=== PATIENT | female | born 1990 | race Hispanic/Latino ===

== ENCOUNTER 2017-02-20 20:30 | Inpatient (IN) | payer MEDICAID, OTHER ==
[2017-02-20] MEDS ORDERED: Sodium Chloride 0.9% 1,000 ML IV STA ×2 (20:41→21:44)
[2017-02-20 20:54] LABS: BASO # 0.1 K/uL (0.0-0.2); BASO % 0.6 % (0.0-2.0); EOS # 0.1 K/uL (0.0-0.7); EOS % 0.9 % (0.0-4.0); HEMATOCRIT 38.3 % (34.0-47.0); LYMPH # 3.6 K/uL (1.0-4.3); LYMPH % 30.1 % (20.0-40.0); MEAN CELL VOLUME 89.6 fl (81.0-99.0); MEAN CORPUSCULAR HEMOGLOBIN 30.4 pg (27.0-31.0); MEAN PLATELET VOLUME 7.9 fl (7.2-11.7); MONO % 8.6 % (0.0-10.0); NEUT # 7.1 K/uL (1.8-7.0); NEUT % 59.8 % (50.0-75.0); RED CELL DISTRIBUTION WIDTH 13.2 % (11.5-14.5); WHITE BLOOD COUNT 11.9 K/uL (4.8-10.8)
[2017-02-20 21:03] LABS: PARTIAL THROMBOPLASTIN TIME 31.1 Seconds (25.6-37.1)
[2017-02-20 21:10] LABS: ALB/GLOB RATIO 1.5 (1.0-2.1); ALCOHOL SERUM 36 mg/dl (0-10); ALKALINE PHOSPHATASE 75 U/L (38-126); ALT/SGPT 23 U/L (9-52); AST/SGOT 29 U/L (14-36); BILIRUBIN,TOTAL 0.9 mg/dl (0.2-1.3); BLOOD UREA NITROGEN 12 mg/dl (7-17); CALCIUM 9.7 mg/dL (8.4-10.2); CARBON DIOXIDE 22 mmol/L (22-30); CHLORIDE 102 mmol/L (98-107); GFR AFRICAN-AMERICAN > 60; GLUCOSE,RANDOM 89 mg/dL (65-105); POTASSIUM 3.3 MMOL/L (3.6-5.0); SODIUM 137 mmol/l (132-148); TOTAL PROTEIN 7.6 G/DL (6.3-8.2)
--- NOTE | 2017-02-20 21:47 | ED PDOC ---
HPI: Psych/Substance Abuse Time Seen by Provider: 02/20/17 20:37 Chief Complaint (Nursing): Altered Mental Status Chief Complaint (Provider): Overdose ED Caveat: Other (Overdose) Onset/Duration Of Symptoms: Hrs Current Symptoms Are (Timing): Still Present Additional Complaint(s): Aleja Juarez is a 27 year old female that was brought in by EMS after she self reported having overdoses on an unspecified amount of a sleeping agent. Upon arrival in ED, patient is somnolent but arousable. Provider attempted to further ascertain history and feels patient verbalizing that she took 6 Ambien. Patient is a poor historian, and there is no other person to provide further history, as patient was reportedly found on the stoop of her building after she called 911. Past Medical History Reviewed: Historical Data, Nursing Documentation, Vital Signs Vital Signs: Last Vital Signs Temp 98.0 F 02/20/17 20:32 Pulse 100 H 02/20/17 20:32 Resp 12 02/20/17 20:32 BP 141/103 H 02/20/17 20:32 Pulse Ox 99 02/20/17 20:32 - Medical History PMH: No Chronic Diseases - Family History Family History: States: Unknown Family Hx - Allergies Allergies/Adverse Reactions: Allergies Allergy/AdvReac Type Severity Reaction Status Date / Time Unobtainable Allergy Verified 02/20/17 20:32 Review of Systems Review Of Systems: ROS cannot be obtained secondary to pt's inabilty to answer questions. Physical Exam - Reviewed Nursing Documentation Reviewed: Yes Vital Signs Reviewed: Yes - Physical Exam Appears: Positive for: Non-toxic, No Acute Distress Head Exam: Positive for: ATRAUMATIC, NORMOCEPHALIC Skin: Positive for: Normal Color, Warm Cardiovascular/Chest: Positive for: Regular Rate, Rhythm. Negative for: Murmur Respiratory: Positive for: Normal Breath Sounds. Negative for: Wheezing Neurologic/Psych: Positive for: Oriented, Other (Patient has slurred speech). Negative for: Alert (Patient is somnolent) - Laboratory Results Result Diagrams: 02/20/17 20:46 02/20/17 20:46 - ECG O2 Sat by Pulse Oximetry: 99 (RA) Pulse Ox Interpretation: Normal - Critical Care Total Time (In Min): 30 Medical Decision Making Medical Decision Making: Impression: 27 year old female s/p overdose Plan: * EKG * Urine Drug Screen * Urinalysis * Accucheck * NaCl 1000 mLs at 1000 mLs/hr * 1:1 Observation * Poison Control Consult * Reevaluation Labs reviewed, showed clinically significant abnormalities. Patient placed in ICU for further monitoring and treatments. Case discussed with Dr. Cornejo and Dr. Tse. 22:09 Further history was obtained, discovered that patient is supposed to be taking [place]. Patient denies and states that she has not taken any lithium. [place] level was added to labs. Poison control has no further recommendations. Scribe Attestation: Documented by Deja Jones, acting as a scribe for Evangelist Centeno MD. Provider Scribe Attestation: All medical record entries made by the Scribe were at my direction and personally dictated by me. I have reviewed the chart and agree that the record accurately reflects my personal performance of the history, physical exam, medical decision making, and the department course for this patient. I have also personally directed, reviewed, and agree with the discharge instructions and disposition. Disposition - Clinical Impression Clinical Impression: Overdose - Patient ED Disposition Is Patient to be Admitted: Yes - Disposition Disposition Time: 21:13 Condition: FAIR
--- NOTE | 2017-02-20 21:53 | CP.PCM.CON ---
History of Present Illness - History of Present Illness History of Present Illness: Attending: Jeff Tse MD Reason for Consult; Critical care management Chief Complaint: AMS/ Drug ingestion HPI: The hx is obtained from the Medical records as the patient is very Somnolent. She is a 27 years old female who apparently called 911 after ingesting and overdosing on an unspecified amount of sleeping Pills. She was found on the stoop of her building and on arrival in the ED she was Very Somnolent, arusable but with thick slurred speech and falling back to sleep immediately. No Information was obtainable. PMH: Unobtainable PSH: Unobtainable SH: Alcohol use, otherwise Unobtainable FH: Unobtainable Allergies: Unobtainable Medication: Unobtainable Review of Systems - Review of Systems Systems not reviewed;Unavailable: Altered Mental Status Review of Systems: Review of system Unobtainable because of the Patient's Somnolence Past Patient History - CARDIAC Hx Cardiac Disorders: Yes (Unobtainable) - PULMONARY Hx Respiratory Disorders: Yes (Unobtainable) Other/Comment: UNobtainable - NEUROLOGICAL Hx Neurological Disorder: Yes (Unobtainable) Other/Comment: Unobtainable - HEENT Hx HEENT Problems: Yes (Unobtainable) Other/Comment: Unobtainable - RENAL Hx Chronic Kidney Disease: Yes (Unobtainable) Other/Comment: Unobtainable - ENDOCRINE/METABOLIC Hx Endocrine Disorders: Yes (Unobtainable) Other/Comment: Unobtainable - HEMATOLOGICAL/ONCOLOGICAL Hx Blood Disorders: Yes (Unobtainable) - INTEGUMENTARY Hx Dermatological Problems: Yes (Unobtainable) - MUSCULOSKELETAL/RHEUMATOLOGICAL Hx Musculoskeletal Disorders: Yes (Unobtainable) - GASTROINTESTINAL Hx Gastrointestinal Disorders: Yes (Unobtainable) - GENITOURINARY/GYNECOLOGICAL Hx Genitourinary Disorders: Yes (Unobtainable) - PSYCHIATRIC Hx Psychophysiologic Disorder: Yes (Unobtainable) - SURGICAL HISTORY Hx Surgeries: Yes (Unobtainable) - ANESTHESIA Hx Anesthesia: Yes (Unobtainable) Meds Allergies/Adverse Reactions: Allergies Allergy/AdvReac Type Severity Reaction Status Date / Time Unobtainable Allergy Verified 02/20/17 20:32 - Medications Medications: Current Medications Sodium Chloride (Sodium Chloride 0.9%) 1,000 mls @ 1,000 mls/hr IV .Q1H STA Stop: 02/20/17 22:43 Ondansetron HCl (Zofran Inj) 4 mg IV STAT STA Stop: 02/20/17 21:45 Physical Exam - Constitutional Appears: No Acute Distress - Head Exam Head Exam: ATRAUMATIC, NORMAL INSPECTION, NORMOCEPHALIC - Eye Exam Eye Exam: Normal appearance Pupil Exam: NORMAL ACCOMODATION - ENT Exam ENT Exam: Mucous Membranes Moist, Normal Exam, Normal External Ear Exam - Neck Exam Neck exam: Positive for: Full Rom, Normal Inspection. Negative for: Lymphadenopathy, Tenderness - Respiratory Exam Respiratory Exam: Clear to Auscultation Bilateral. absent: Rales, Rhonchi, Wheezes - Cardiovascular Exam Cardiovascular Exam: REGULAR RHYTHM, RRR, +S1, +S2. absent: Gallop, JVD - GI/Abdominal Exam GI & Abdominal Exam: Normal Bowel Sounds, Soft. absent: Mass, Tenderness - Rectal Exam Rectal Exam: Deferred - Extremities Exam Extremities exam: Positive for: normal inspection. Negative for: full ROM, joint swelling, pedal edema - Neurological Exam Neurological exam: CN II-XII Intact, Reflexes Normal Additional comments: Somnolent, arousable, Clear speech if fully aroused,no facial droop, moving all extremities. - Psychiatric Exam Psychiatric exam: Suicidal Ideation - Skin Skin Exam: Dry, Intact, Normal Color, Warm Results - Vital Signs Recent Vital Signs: Last Vital Signs Temp 98.0 F 02/20/17 20:32 Pulse 100 H 02/20/17 20:32 Resp 12 02/20/17 20:32 BP 141/103 H 02/20/17 20:32 Pulse Ox 99 02/20/17 21:52 - Labs Result Diagrams: 02/21/17 04:35 02/21/17 04:35 - EKG Data EKG comments: NSR 83/min No sign of ischemia Assessment & Plan - Assessment and Plan (Free Text) Assessment: #. Drug Overdose #. AMS #. Hyperkalemia Plan: 27 years old female who apparently called 911 after ingesting and overdosing on an unspecified amount of sleeping Pills. She was found on the stoop of her building and on arrival in the ED was Very Somnolent, arousable but with thick slurred speech and falling back to sleep immediately. No Information was obtainable. #. Drug Overdose on Ambien with Suicide Attempt - consult Dr Jimenez Psychiatry - Admit to ICU - IV Fluids NS at 150mls/hr - Neuro Checks - 1:1 for Suicide observation #. AMS seconday to the Drug Overdose - Treat Drug Overdose #. Hyperkalemia - Replete KCL in the IV fluids #. DVT prophylaxis with Lovenox #. Code Status: Full - Date & Time Date: 02/20/17 Time: 21:53
[2017-02-20 22:45] LABS: RBC URINE 1 /hpf (0-3); URINE BILIRUBIN NEGATIVE (NEGATIVE); URINE BLOOD SMALL (NEGATIVE); URINE COLOR STRAW (YELLOW); URINE GLUCOSE (UA) NEG (Normal); URINE KETONE NEGATIVE (NEGATIVE); URINE LEUKOCYTE ESTERASE NEG Leu/uL (Negative); URINE PROTEIN NEGATIVE (NEGATIVE); URINE UROBILINOGEN 0.2-1.0 mg/dL (0.2-1.0); WBC URINE < 1 /hpf (0-5)
[2017-02-20] MEDS ORDERED: Thiamine 100 mg/ml Inj IM SCH (22:45)
[2017-02-20] MEDS ORDERED: Potassium Chl 20 mEq in D5-NS 1,000 ML IV SCH (22:45)
[2017-02-21 05:23] LABS: BASO # 0.1 K/uL (0.0-0.2); BASO % 0.4 % (0.0-2.0); EOS # 0.1 K/uL (0.0-0.7); EOS % 0.4 % (0.0-4.0); HEMATOCRIT 35.8 % (34.0-47.0); LYMPH # 3.8 K/uL (1.0-4.3); LYMPH % 26.9 % (20.0-40.0); MEAN CELL VOLUME 90.7 fl (81.0-99.0); MEAN CORPUSCULAR HEMOGLOBIN 29.9 pg (27.0-31.0); MEAN CORPUSCULAR HGB CONC 32.9 g/dL (33.0-37.0); MEAN PLATELET VOLUME 8.1 fl (7.2-11.7); MONO # 1.1 K/uL (0.0-0.8); MONO % 7.9 % (0.0-10.0); NEUT # 9.1 K/uL (1.8-7.0); NEUT % 64.4 % (50.0-75.0); RED CELL DISTRIBUTION WIDTH 13.2 % (11.5-14.5); WHITE BLOOD COUNT 14.2 K/uL (4.8-10.8)
[2017-02-21 05:27] LABS: BLOOD UREA NITROGEN 9 mg/dl (7-17); CALCIUM 8.2 mg/dL (8.4-10.2); CARBON DIOXIDE 23 mmol/L (22-30); CHLORIDE 107 mmol/L (98-107); GFR AFRICAN-AMERICAN > 60; GLUCOSE,RANDOM 104 mg/dL (65-105); POTASSIUM 4.3 MMOL/L (3.6-5.0); SODIUM 139 mmol/l (132-148)
[2017-02-21] MEDS: Sodium Chloride 0.9% 1,000 ML IV SCH (06:20)
--- NOTE | 2017-02-21 07:38 | CP.PCM.HP ---
History of Present Illness - History of Present Illness History of Present Illness: A 27 year old female was admitted to the ICU for ingestion of sleeping pills. She has a history of chronic depression and has been taking prozac, lithium, levetiracetum since 2013. She has been seeing a psychiatrist, Dr. Malone as a regular base. She took yesterday 27 pills of 10 mg of Ambien (zolpidem) around 7 PM with water and alcohol ([place]). She changed her mind and called 911. She did not vomit, but is feeling sleepy. She had not attempted to commit suicide before. Alcohol level was high, 36 at ER. Present on Admission - Present on Admission Any Indicators Present on Admission: No History of DVT/PE: No History of Uncontrolled Diabetes: No Urinary Catheter: No Decubitus Ulcer Present: No Review of Systems - EENT Eyes: absent: Blurred Vision Nose/Mouth/Throat: absent: Nasal Congestion - Cardiovascular Cardiovascular: absent: Chest Pain - Respiratory Respiratory: absent: Cough - Gastrointestinal Gastrointestinal: absent: Abdominal Pain Past Patient History - Past Medical History & Family History Past Medical History?: No - Past Social History Smoking Status: Never Smoked - CARDIAC Hx Cardiac Disorders: Yes (Unobtainable) - PULMONARY Hx Respiratory Disorders: Yes (Unobtainable) Other/Comment: UNobtainable - NEUROLOGICAL Hx Neurological Disorder: Yes (Unobtainable) Other/Comment: Unobtainable - HEENT Hx HEENT Problems: Yes (Unobtainable) Other/Comment: Unobtainable - RENAL Hx Chronic Kidney Disease: Yes (Unobtainable) Other/Comment: Unobtainable - ENDOCRINE/METABOLIC Hx Endocrine Disorders: Yes (Unobtainable) Other/Comment: Unobtainable - HEMATOLOGICAL/ONCOLOGICAL Hx Blood Disorders: Yes (Unobtainable) - INTEGUMENTARY Hx Dermatological Problems: Yes (Unobtainable) - MUSCULOSKELETAL/RHEUMATOLOGICAL Hx Musculoskeletal Disorders: Yes (Unobtainable) - GASTROINTESTINAL Hx Gastrointestinal Disorders: Yes (Unobtainable) - GENITOURINARY/GYNECOLOGICAL Hx Genitourinary Disorders: Yes (Unobtainable) - PSYCHIATRIC Hx Psychophysiologic Disorder: Yes (Unobtainable) - SURGICAL HISTORY Hx Surgeries: Yes (Unobtainable) - ANESTHESIA Hx Anesthesia: Yes (Unobtainable) Meds Allergies/Adverse Reactions: Allergies Allergy/AdvReac Type Severity Reaction Status Date / Time Unobtainable Allergy Verified 02/20/17 20:32 Physical Exam - Constitutional Appears: No Acute Distress - Respiratory Exam Respiratory Exam: Clear to Auscultation Bilateral, NORMAL BREATHING PATTERN - Cardiovascular Exam Cardiovascular Exam: REGULAR RHYTHM. absent: Systolic Murmur - GI/Abdominal Exam GI & Abdominal Exam: Normal Bowel Sounds, Soft Results - Vital Signs Recent Vital Signs: Last Vital Signs Temp 98.8 F 02/21/17 04:00 Pulse 65 02/21/17 06:00 Resp 14 02/21/17 06:00 BP 105/63 02/21/17 06:00 Pulse Ox 99 02/21/17 06:00 - Labs Result Diagrams: 02/21/17 04:35 02/21/17 04:35 Labs: Laboratory Results - last 24 hr 02/20/17 02/20/17 02/20/17 22:39 22:39 22:39 WBC RBC Hgb Hct MCV MCH MCHC RDW Plt Count MPV Neut % (Auto) Lymph % (Auto) [place] % (Auto) Eos % (Auto) Baso % (Auto) Neut # Lymph # [place] # Eos # Baso # Sodium Potassium Chloride Carbon Dioxide Anion Gap BUN Creatinine Est GFR ( Amer) Est GFR (Non-Af Amer) Random Glucose Calcium Urine Color Straw Urine Clarity Clear Urine pH 6.0 Ur Specific [place] 1.010 Urine Protein Negative Urine Glucose (UA) Neg Urine Ketones Negative Urine Blood Small Urine Nitrate Negative Urine Bilirubin Negative Urine Urobilinogen 0.2-1.0 Ur Leukocyte Esterase Neg Urine RBC (Auto) 1 Urine Microscopic WBC < 1 Ur Squamous Epith Cells < 1 Urine Opiates Screen Negative Urine Methadone Screen Negative Ur Barbiturates Screen Negative Ur Phencyclidine Scrn Negative Ur Amphetamines Screen Negative U Benzodiazepines Scrn Negative [place] < 0.2 L U Oth Cocaine Metabols Negative U Cannabinoids Screen Negative 02/21/17 02/21/17 04:35 04:35 WBC 14.2 H RBC 3.95 Hgb 11.8 L Hct 35.8 MCV 90.7 MCH 29.9 MCHC 32.9 L RDW 13.2 Plt Count 215 MPV 8.1 Neut % (Auto) 64.4 Lymph % (Auto) 26.9 [place] % (Auto) 7.9 Eos % (Auto) 0.4 Baso % (Auto) 0.4 Neut # 9.1 H Lymph # 3.8 [place] # 1.1 H Eos # 0.1 Baso # 0.1 Sodium 139 Potassium 4.3 Chloride 107 Carbon Dioxide 23 Anion Gap 13 BUN 9 Creatinine 0.7 Est GFR ( Amer) > 60 Est GFR (Non-Af Amer) > 60 Random Glucose 104 Calcium 8.2 L Urine Color Urine Clarity Urine pH Ur Specific [place] Urine Protein Urine Glucose (UA) Urine Ketones Urine Blood Urine Nitrate Urine Bilirubin Urine Urobilinogen Ur Leukocyte Esterase Urine RBC (Auto) Urine Microscopic WBC Ur Squamous Epith Cells Urine Opiates Screen Urine Methadone Screen Ur Barbiturates Screen Ur Phencyclidine Scrn Ur Amphetamines Screen U Benzodiazepines Scrn [place] U Oth Cocaine Metabols U Cannabinoids Screen Assessment & Plan - Assessment and Plan (Free Text) Assessment: drug ingestion (Ambien) depression Plan: observation follow toxicology recommendation psychiatry consult - Date & Time Date: 02/21/17 Time: 07:40
[2017-02-21] MEDS: Enoxaparin 40 mg Syringe SC SCH (08:51)
--- NOTE | 2017-02-21 09:08 | CARD ---
APPROVED REPORT EKG Measurement Heart [id number] CT [id number] <Conclusion> Normal sinus rhythm Normal ECG
--- NOTE | 2017-02-21 10:36 | CP.PCM.CON ---
History of Present Illness - History of Present Illness History of Present Illness: Psychiatry consult called for evaluation of suicide attempt CC: "I suffer from chronic depression." HPI: 27 yo female w/ h/o chronic depression, presents s/p overdose on 27 pills of 10 mg of Ambien w/ cognac.. Patient reports that it was a suicide attempt. She has been feeling worsening depression, hopelessness, and feels like a burden to her family. She now regrets her attempt and wants to live. She denies current suicidal ideation/plan/intent. She is not certain if she wants to sign in for voluntary psychiatric admission at this time. No delusions/ hallucinations/homicidal ideation/paranoia. PPHx: H/o outpatient tx w/ Dr. Malone; currently taking Prozac (10 mg?), Lamictal 200 mg PO Daily, and [place] 100 mg PO Q12. Denies h/o suicide attempts. PMHx: Denies chronic medical conditions SHx: Lives alone in [place], financially supported by her family. Denies drugs , drinks socially, no cig. FHx: Mother, grandmother and aunts w/ varying degrees of depression MSE: A + O x 3, calm/cooperative, mood-depressed, affect- depressed, speech normal, speech normal, psychomotor normal, no hallucinations, thought process- linear, thought content- no delusions, insight/judgment-fair, impulse control fair Impression: 27 yo female w/ h/o depression, presents s/p suicide attempt. Patient need acute inpatient psychiatric hospitalization for treatment and safety. -Recommend psychiatric admission when she is medically stable; if she is not agreeable to voluntary admission, would have her screened for involuntary admission -Restart Lamictal 200 mg PO Daily -Hold other medications at this time; will consider restarting Prozac and [place] (Li level <0.2) -Continue 1:1 for safety. Past Patient History - Past Medical History & Family History Past Medical History?: No - Past Social History Smoking Status: Never Smoked - CARDIAC Hx Cardiac Disorders: Yes (Unobtainable) - PULMONARY Hx Respiratory Disorders: Yes (Unobtainable) Other/Comment: UNobtainable - NEUROLOGICAL Hx Neurological Disorder: Yes (Unobtainable) Other/Comment: Unobtainable - HEENT Hx HEENT Problems: Yes (Unobtainable) Other/Comment: Unobtainable - RENAL Hx Chronic Kidney Disease: Yes (Unobtainable) Other/Comment: Unobtainable - ENDOCRINE/METABOLIC Hx Endocrine Disorders: Yes (Unobtainable) Other/Comment: Unobtainable - HEMATOLOGICAL/ONCOLOGICAL Hx Blood Disorders: Yes (Unobtainable) - INTEGUMENTARY Hx Dermatological Problems: Yes (Unobtainable) - MUSCULOSKELETAL/RHEUMATOLOGICAL Hx Musculoskeletal Disorders: Yes (Unobtainable) - GASTROINTESTINAL Hx Gastrointestinal Disorders: Yes (Unobtainable) - GENITOURINARY/GYNECOLOGICAL Hx Genitourinary Disorders: Yes (Unobtainable) - PSYCHIATRIC Hx Psychophysiologic Disorder: Yes (Unobtainable) - SURGICAL HISTORY Hx Surgeries: Yes (Unobtainable) - ANESTHESIA Hx Anesthesia: Yes (Unobtainable) Meds Allergies/Adverse Reactions: Allergies Allergy/AdvReac Type Severity Reaction Status Date / Time Unobtainable Allergy Verified 02/20/17 20:32 - Medications Medications: Current Medications Enoxaparin Sodium (Lovenox) 40 mg SC DAILY [facility] PRN Reason: Protocol Last Admin: 02/21/17 08:51 Dose: 40 mg Potassium Chloride/Dextrose/Sod Cl (Potassium Chl 20 Meq In D5-Ns) 1,000 mls @ 148.515 mls/hr IV .Q6H44M [facility] Last Admin: 02/21/17 00:25 Dose: 148.515 mls/hr Sodium Chloride (Sodium Chloride 0.9%) 1,000 mls @ 150 mls/hr IV .Q6H40M [facility] Stop: 02/22/17 06:10 Last Admin: 02/21/17 06:20 Dose: 150 mls/hr Lamotrigine (Lamictal) 200 mg PO DAILY [facility] Ondansetron HCl (Zofran Inj) 4 mg IVP Q4 PRN PRN Reason: Nausea/Vomiting Results - Vital Signs Recent Vital Signs: Last Vital Signs Temp 97.4 F L 02/21/17 08:00 Pulse 61 02/21/17 08:00 Resp 15 02/21/17 08:00 BP 113/62 02/21/17 08:00 Pulse Ox 98 02/21/17 08:00 - Labs Result Diagrams: 02/21/17 04:35 02/21/17 04:35 Labs: Laboratory Results - last 24 hr 02/20/17 02/20/17 02/20/17 22:39 22:39 22:39 WBC RBC Hgb Hct MCV MCH MCHC RDW Plt Count MPV Neut % (Auto) Lymph % (Auto) [place] % (Auto) Eos % (Auto) Baso % (Auto) Neut # Lymph # [place] # Eos # Baso # Sodium Potassium Chloride Carbon Dioxide Anion Gap BUN Creatinine Est GFR ( Amer) Est GFR (Non-Af Amer) Random Glucose Calcium Urine Color Straw Urine Clarity Clear Urine pH 6.0 Ur Specific [place] 1.010 Urine Protein Negative Urine Glucose (UA) Neg Urine Ketones Negative Urine Blood Small Urine Nitrate Negative Urine Bilirubin Negative Urine Urobilinogen 0.2-1.0 Ur Leukocyte Esterase Neg Urine RBC (Auto) 1 Urine Microscopic WBC < 1 Ur Squamous Epith Cells < 1 Urine Opiates Screen Negative Urine Methadone Screen Negative Ur Barbiturates Screen Negative Ur Phencyclidine Scrn Negative Ur Amphetamines Screen Negative U Benzodiazepines Scrn Negative [place] < 0.2 L U Oth Cocaine Metabols Negative U Cannabinoids Screen Negative 02/21/17 02/21/17 04:35 04:35 WBC 14.2 H RBC 3.95 Hgb 11.8 L Hct 35.8 MCV 90.7 MCH 29.9 MCHC 32.9 L RDW 13.2 Plt Count 215 MPV 8.1 Neut % (Auto) 64.4 Lymph % (Auto) 26.9 [place] % (Auto) 7.9 Eos % (Auto) 0.4 Baso % (Auto) 0.4 Neut # 9.1 H Lymph # 3.8 [place] # 1.1 H Eos # 0.1 Baso # 0.1 Sodium 139 Potassium 4.3 Chloride 107 Carbon Dioxide 23 Anion Gap 13 BUN 9 Creatinine 0.7 Est GFR ( Amer) > 60 Est GFR (Non-Af Amer) > 60 Random Glucose 104 Calcium 8.2 L Urine Color Urine Clarity Urine pH Ur Specific [place] Urine Protein Urine Glucose (UA) Urine Ketones Urine Blood Urine Nitrate Urine Bilirubin Urine Urobilinogen Ur Leukocyte Esterase Urine RBC (Auto) Urine Microscopic WBC Ur Squamous Epith Cells Urine Opiates Screen Urine Methadone Screen Ur Barbiturates Screen Ur Phencyclidine Scrn Ur Amphetamines Screen U Benzodiazepines Scrn [place] U Oth Cocaine Metabols U Cannabinoids Screen
--- NOTE | 2017-02-21 14:07 | CP.PCM.PCO ---
Critical Care Progress Note - Nutrition Nutrition: Awake and alert, no distress. Appears emotional with parents at the bedside. Hemodynamics stable, no arrhythmias noted, respiratory status has been stable without issues nor any need for assisted breathing support. Discussed with Psych , cleared for transfer to regular medical bed, under 1:1 supervision. Lamictal resumed for now. Consider [place] level assessment.
[2017-02-22] MEDS: Sodium Chloride 0.9% 1,000 ML IV SCH ×3 (01:10→20:36)
--- NOTE | 2017-02-22 08:43 | CP.PCM.PN ---
Subjective - Date & Time of Evaluation Date of Evaluation: 02/22/17 Time of Evaluation: 08:41 - Subjective Subjective: feels fine now no headache no nausea Objective - Vital Signs/Intake and Output Vital Signs (last 24 hours): Temp Pulse Resp BP Pulse Ox 98.4 F 65 18 116/76 96 02/22/17 08:04 02/22/17 08:04 02/22/17 08:04 02/22/17 08:04 02/22/17 08:04 - Medications Medications: Current Medications Enoxaparin Sodium (Lovenox) 40 mg SC DAILY [facility] PRN Reason: Protocol Last Admin: 02/21/17 08:51 Dose: 40 mg Lamotrigine (Lamictal) 200 mg PO DAILY [facility] Last Admin: 02/21/17 11:36 Dose: 200 mg Ondansetron HCl (Zofran Inj) 4 mg IVP Q4 PRN PRN Reason: Nausea/Vomiting - Labs Labs: 02/21/17 04:35 02/21/17 04:35 PT 11.9 Seconds (9.8-13.1) 02/20/17 20:46 INR 1.2 (0.9-1.2) 02/20/17 20:46 APTT 31.1 Seconds (25.6-37.1) 02/20/17 20:46 - Constitutional Appears: No Acute Distress - Respiratory Exam Respiratory Exam: Clear to Ausculation Bilateral, NORMAL BREATHING PATTERN - Cardiovascular Exam Cardiovascular Exam: REGULAR RHYTHM. absent: Murmur - GI/Abdominal Exam GI & Abdominal Exam: Soft Assessment and Plan - Assessment and Plan (Free Text) Assessment: s/p drug ingestion of Ambien, attempted suicide now on 1:1 watch psychiatry on board history of chronic depression yesterday Lamictal started. Plan: Patient is saying that she will do voluntary admission. She is medically clear for psych admission. follow up. taper iv fluid.
[2017-02-22] MEDS: Enoxaparin 40 mg Syringe SC SCH (10:08)
[2017-02-22] MEDS ORDERED: Naproxen 500 MG TAB PO PRN (19:30)
[2017-02-23] MEDS: Sodium Chloride 0.9% 1,000 ML IV SCH (06:00)
[2017-02-23] MEDS: Enoxaparin 40 mg Syringe SC SCH (09:08)
--- NOTE | 2017-02-23 12:23 | CP.PCM.PN ---
Subjective - Date & Time of Evaluation Date of Evaluation: 02/23/17 Time of Evaluation: 12:20 - Subjective Subjective: no nausea no headaches yesterday she had menstrual cramps, now she is fine. her parents are at the bed side. Objective - Vital Signs/Intake and Output Vital Signs (last 24 hours): Temp Pulse Resp BP Pulse Ox 97.6 F 64 18 113/72 98 02/23/17 00:16 02/23/17 00:16 02/23/17 00:16 02/23/17 00:16 02/23/17 00:16 - Medications Medications: Current Medications Enoxaparin Sodium (Lovenox) 40 mg SC DAILY [facility] PRN Reason: Protocol Last Admin: 02/23/17 09:08 Dose: 40 mg Sodium Chloride (Sodium Chloride 0.9%) 1,000 mls @ 100 mls/hr IV .Q10H [facility] Last Admin: 02/23/17 06:00 Dose: Not Given Lamotrigine (Lamictal) 200 mg PO DAILY [facility] Last Admin: 02/23/17 09:07 Dose: 200 mg Naproxen (Naproxen) 500 mg PO Q12 PRN PRN Reason: Pain, moderate (4-7) Last Admin: 02/22/17 20:35 Dose: 500 mg Ondansetron HCl (Zofran Inj) 4 mg IVP Q4 PRN PRN Reason: Nausea/Vomiting - Labs Labs: 02/21/17 04:35 02/21/17 04:35 PT 11.9 Seconds (9.8-13.1) 02/20/17 20:46 INR 1.2 (0.9-1.2) 02/20/17 20:46 APTT 31.1 Seconds (25.6-37.1) 02/20/17 20:46 - Constitutional Appears: No Acute Distress - Respiratory Exam Respiratory Exam: Clear to Ausculation Bilateral, NORMAL BREATHING PATTERN - Cardiovascular Exam Cardiovascular Exam: REGULAR RHYTHM. absent: Murmur - GI/Abdominal Exam GI & Abdominal Exam: Soft. absent: Tenderness Assessment and Plan - Assessment and Plan (Free Text) Assessment: s/p drug ingestion of sleeping pills suicidal attempt now on 1:1 watch chronic depression Plan: transfer to an in patient psych unit patient wants voluntary admission She is medically clear for drug ingestion of Ambien.
[2017-02-23 15:34] VITALS: O2SAT 99
--- NOTE | 2017-02-23 20:45 | CP.PCM.CON ---
History of Present Illness - History of Present Illness History of Present Illness: pt to [facility] 6[facility] via [facility] after presentation status post impulsive (reported) overdose of 27 ambien in impulsive act after reportedly feeling ashamed of "not managing money well". 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 reports lives along, has grown astray from many friends, maintains some relationships with some friends from [facility] [employer] from which she reportedly graduated more than one year ago. Reports that generally spends money on fast foods or prepared foods. denies impulsive behavior. although denies hx of eating disorders reports that has put on some weight and not attending gym as much as she would like. reports hx of social anxiety described as feeling in past nervous around people she did not know or starting conversations with people she is not familiar with with. reportedly compensated with this by assuming what her brother reportedly said he did " i imagined myself as being liked, someone people would want to be around"-which reportedly worked. 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 reports has been seeing dr sewell on wednesdays ([place] office hours) along with therapist. pt was taking lamictal 100mg po bid and approx. 10days prior to admission was started on lithium 100mg po bid-reportedly symptoms began to worsen in terms of depression with this change. previously was taking rispderal 1mg po hs which reportedly worked for a while with concentration/volition-then after stopped working . 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 hx Alcohol: Other (two glasses wine day) Drugs: Cannabis Home Situation {Lives}: Alone, Other ([place] live in [place]) - CARDIAC Hx Cardiac Disorders: No (Unobtainable) Hx Angina: No Hx Atrial Fibrillation: No - PULMONARY Hx Respiratory Disorders: Yes (Unobtainable) Other/Comment: UNobtainable - NEUROLOGICAL Hx Neurological Disorder: Yes (Unobtainable) Other/Comment: Unobtainable - HEENT Hx HEENT Problems: Yes (Unobtainable) Other/Comment: Unobtainable - RENAL Hx Chronic Kidney Disease: Yes (Unobtainable) Other/Comment: Unobtainable - ENDOCRINE/METABOLIC Hx Endocrine Disorders: Yes (Unobtainable) Other/Comment: Unobtainable - HEMATOLOGICAL/ONCOLOGICAL Hx Blood Disorders: Yes (Unobtainable) - INTEGUMENTARY Hx Dermatological Problems: Yes (Unobtainable) - MUSCULOSKELETAL/RHEUMATOLOGICAL Hx Musculoskeletal Disorders: Yes (Unobtainable) - GASTROINTESTINAL Hx Gastrointestinal Disorders: Yes (Unobtainable) - GENITOURINARY/GYNECOLOGICAL Hx Genitourinary Disorders: Yes (Unobtainable) - PSYCHIATRIC Hx Psychophysiologic Disorder: Yes (Unobtainable) - SURGICAL HISTORY Hx Surgeries: Yes (Unobtainable) - ANESTHESIA Hx Anesthesia: Yes (Unobtainable) Meds Allergies/Adverse Reactions: Allergies Allergy/AdvReac Type Severity Reaction Status Date / Time Unobtainable Allergy Verified 02/20/17 20:32 - Medications Medications: Current Medications Enoxaparin Sodium (Lovenox) 40 mg SC DAILY [facility] PRN Reason: Protocol Last Admin: 02/23/17 09:08 Dose: 40 mg Sodium Chloride (Sodium Chloride 0.9%) 1,000 mls @ 100 mls/hr IV .Q10H [facility] Last Admin: 02/23/17 06:00 Dose: Not Given Lamotrigine (Lamictal) 200 mg PO DAILY [facility] Last Admin: 02/23/17 09:07 Dose: 200 mg Naproxen (Naproxen) 500 mg PO Q12 PRN PRN Reason: Pain, moderate (4-7) Last Admin: 02/22/17 20:35 Dose: 500 mg Ondansetron HCl (Zofran Inj) 4 mg IVP Q4 PRN PRN Reason: Nausea/Vomiting Physical Exam - Constitutional Appears: No Acute Distress, Younger Than Stated Age Additional comments: hospital gown, hospital room - Neurological Exam Neurological exam: Alert, Normal Gait, Oriented x3 - Psychiatric Exam Additional comments: somewhat constricted affect, speech of varied rate, thought process is linear/ goal directed, mood is reported as remorseful about act, denies wanting to harmself-is reportedly glad to be alive, affect is mood congruent, -s/i,-h/i,- psychosis, i/j impaired Results - Vital Signs Recent Vital Signs: Last Vital Signs Temp 98.1 F 02/23/17 15:33 Pulse 69 02/23/17 15:33 Resp 17 02/23/17 15:33 BP 129/77 02/23/17 15:33 Pulse Ox 99 02/23/17 15:33 - Labs Result Diagrams: 02/21/17 04:35 02/21/17 04:35 - Impressions Impression: major depressive disorder moderate to severe without psychosis ?bipolar disorder ?mood stabilizer lamictal and lithium s/p overdose ambien reported as impulsive act Assessment & Plan (1) Major depress dis, severe Status: Chronic Priority: High (2) Bipolar 1 disorder, depressed Status: Acute Priority: High Comment: rule out ?two mood stabilizers (3) Suicidal overdose Status: Acute Priority: High - Assessment and Plan (Free Text) Plan: once medically cleared pt to be voluntarily transferred to [facility]-pt has signed release and release/agreement was forwarded to nursing staff on 6s 48 hour notice was explained to pt pt was verbally agreeable and positive teachback was noted. team in am of [phone] should reach out to obtain records dr sewell/therapist-pt was verbally agreeable pt to further evaluated on 3 and medications to titrated per clinical status
[2017-02-23 22:12] VITALS: BP 115/70; PULSE 58; RESP 19; TEMP 98
--- NOTE | 2017-02-24 00:30 | CP.PCM.HP ---
History of Present Illness - History of Present Illness History of Present Illness: 27 yo ,f, PMHx/o Major depression who was brought in to ED by EMS after suicidal attempt with Ambien overdose (27 pills) 3 days ago.Patient was admitted in ICU, medsurg and transferred to psyq [facility]. Patient reports has been with suicidal ideation for about 1 year and took medications to finish with his problems, but does not want to mention what kind of problems. Patient AAO x 3, denies chest pain, SOB, tremor, nausea, anxiety, abd pain, visual or auditory hallucinations. She has been seeing a psychiatrist, Dr. Malone as a regular base.last visit 2 weeks ago PMhx: Major depression Allergies: Cefaclor, Penicillins Meds: lamotrigine ,Prozac, [place] 100mg BID ( as per patient ) PsurgHx: None PShx: +ETOH occs social, no rect drus, no cig PMD: Dr Carmencita Aguilar Present on Admission - Present on Admission Any Indicators Present on Admission: No History of DVT/PE: No History of Uncontrolled Diabetes: No Urinary Catheter: No Decubitus Ulcer Present: No Past Patient History - Infectious Disease Hx of Infectious Diseases: None - Past Medical History & Family History Past Medical History?: No - Past Social History Smoking Status: Never Smoked Chewing Tobacco Use: No Cigar Use: No 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 hx Alcohol: Other (two glasses wine day) Drugs: Cannabis Home Situation {Lives}: Alone, Other ([place] in [place]) - CARDIAC Hx Cardiac Disorders: No (Unobtainable) Hx Angina: No Hx Atrial Fibrillation: No - PULMONARY Hx Respiratory Disorders: Yes (Unobtainable) Other/Comment: UNobtainable - NEUROLOGICAL Hx Neurological Disorder: Yes (Unobtainable) Other/Comment: Unobtainable - HEENT Hx HEENT Problems: Yes (Unobtainable) Other/Comment: Unobtainable - RENAL Hx Chronic Kidney Disease: Yes (Unobtainable) Other/Comment: Unobtainable - ENDOCRINE/METABOLIC Hx Endocrine Disorders: Yes (Unobtainable) Other/Comment: Unobtainable - HEMATOLOGICAL/ONCOLOGICAL Hx Blood Disorders: Yes (Unobtainable) - INTEGUMENTARY Hx Dermatological Problems: Yes (Unobtainable) - MUSCULOSKELETAL/RHEUMATOLOGICAL Hx Musculoskeletal Disorders: Yes (Unobtainable) - GASTROINTESTINAL Hx Gastrointestinal Disorders: Yes (Unobtainable) - GENITOURINARY/GYNECOLOGICAL Hx Genitourinary Disorders: Yes (Unobtainable) - PSYCHIATRIC Hx Psychophysiologic Disorder: Yes (Unobtainable) - SURGICAL HISTORY Hx Surgeries: Yes (Unobtainable) - ANESTHESIA Hx Anesthesia: Yes (Unobtainable) Meds Allergies/Adverse Reactions: Allergies Allergy/AdvReac Type Severity Reaction Status Date / Time cefaclor [From Ceclor] Allergy ITCHING Verified 02/23/17 23:19 Penicillins Allergy ITCHING Verified 02/23/17 23:19 Physical Exam - Constitutional Appears: Non-toxic - Head Exam Head Exam: ATRAUMATIC, NORMOCEPHALIC - Eye Exam Eye Exam: Normal appearance - ENT Exam ENT Exam: Mucous Membranes Moist - Neck Exam Neck exam: Positive for: Normal Inspection - Respiratory Exam Respiratory Exam: Clear to Auscultation Bilateral. absent: Rhonchi, Wheezes - Cardiovascular Exam Cardiovascular Exam: REGULAR RHYTHM, +S1, +S2 - GI/Abdominal Exam GI & Abdominal Exam: Normal Bowel Sounds, Soft. absent: Tenderness - Extremities Exam Extremities exam: Positive for: normal inspection. Negative for: pedal edema - Back Exam Back exam: NORMAL INSPECTION - Neurological Exam Neurological exam: Alert, Oriented x3 - Psychiatric Exam Psychiatric exam: Normal Affect, Suicidal Ideation - Skin Skin Exam: Normal Color Results - Vital Signs Recent Vital Signs: Last Vital Signs Temp 98.0 F 02/23/17 22:12 Pulse 58 L 02/23/17 22:12 Resp 19 02/23/17 22:12 BP 115/70 02/23/17 22:12 Pulse Ox 99 02/23/17 22:12 - Labs Result Diagrams: 02/21/17 04:35 02/21/17 04:35 Assessment & Plan - Assessment and Plan (Free Text) Plan: 27 yo ,f, PMHx/o Major depression admitted for overdose ambien ( suicidal attempt) and transferred to Psyq unit tonight Assesment/plan 1) Major depression -lamotrigine -Prozac -[place] 100mg BID ( as per patient ) -Psyq consult suggested -[place] levels low 2) Drug Overdose on Ambien with Suicide Attempt -resolved 3) DVT Prophylaxis -able to ambulate
--- NOTE | 2017-02-24 07:16 | PQF GENQUE ---
This form is a permanent part of the medical record 02/24/17 Dr. Cornejo, Would you please clarify if there is an associated diagnosis to go along with the AMS or not. She is a 27 years old female who apparently called 911 after ingesting and overdosing on an unspecified amount of sleeping Pills. She was found on the stoop of her building and on arrival in the ED she was Very Somnolent, arousable but with thick slurred speech and falling back to sleep immediately. Documentation of AMS secondary to the Drug Overdose. Clarification of your documentation is requested to better reflect the severity of illness and intensity of treatment of your patient. PHYSICIAN'S RESPONSE [x] Additional diagnosis of ( please specify)_The AMA is associated with Metabolic Encephalopathy [] No additional diagnosis Based on your medical judgment of the clinical indicators outlined above please clarify the following: [] Practitioner response [] If unable to determine, please check the box, sign and date. Present On Admission (POA) Indicator: [] Present at the time of admission [] Not present at the time of admission [] Clinically Undetermined In responding to this query, please exercise your independent professional judgment. The fact that a question is asked does not imply that any particular answer is desired or expected. Thank you for your clarification on this documentation. If you have any questions please call:ext [phone] * Thank you, Suad Bland RN CD[facility]
--- NOTE | 2017-02-24 07:19 | PQF GENQUE ---
This form is a permanent part of the medical record 02/21/17 Dr. Corenjo, Admitted for drug overdose. Potassium level of 3.3 with KCL replacement. Hospitalist note with Hyperkalemia . Would you please clarify if the Hyperkalemia is ruled out and Hypokalemia is ruled in. Clarification of your documentation is requested to better reflect the severity of illness and intensity of treatment of your patient. Indicators present [] Specify: [] [] Specify: [] [] Specify: [] [] Specify: [] Location in the medical record that reflects the above clinical findings: [] Treatment Provided: [] PHYSICIAN'S RESPONSE [x] Hyperkalemia ruled out and Hypokalemia ruled in [] Other ( please specify ) [] Unable to determine Based on your medical judgment of the clinical indicators outlined above please clarify the following: [x] Practitioner response [] If unable to determine, please check the box, sign and date. Present On Admission (POA) Indicator: [x] Present at the time of admission [] Not present at the time of admission [] Clinically Undetermined In responding to this query, please exercise your independent professional judgment. The fact that a question is asked does not imply that any particular answer is desired or expected. Thank you for your clarification on this documentation. If you have any questions please call:ext [phone] * Thank you, Suad Bland RN [facility]
[2017-02-24 09:49] LABS: HEMATOCRIT 37.4 % (34.0-47.0); MEAN CELL VOLUME 91.4 fl (81.0-99.0); MEAN CORPUSCULAR HEMOGLOBIN 30.1 pg (27.0-31.0); RED CELL DISTRIBUTION WIDTH 13.3 % (11.5-14.5); WHITE BLOOD COUNT 8.1 K/uL (4.8-10.8)
[2017-02-24 09:54] LABS: ALB/GLOB RATIO 1.4 (1.0-2.1); ALKALINE PHOSPHATASE 60 U/L (38-126); ALT/SGPT 22 U/L (9-52); AST/SGOT 21 U/L (14-36); BILIRUBIN,TOTAL 0.9 mg/dl (0.2-1.3); BLOOD UREA NITROGEN 8 mg/dl (7-17); CALCIUM 9.3 mg/dL (8.4-10.2); CARBON DIOXIDE 25 mmol/L (22-30); CHLORIDE 104 mmol/L (98-107); GFR AFRICAN-AMERICAN > 60; GLUCOSE,RANDOM 88 mg/dL (65-105); POTASSIUM 3.9 MMOL/L (3.6-5.0); SODIUM 140 mmol/l (132-148); TOTAL PROTEIN 6.6 G/DL (6.3-8.2)
== END 2017-02-23 22:30 | DRG 582 ==
LOC: H.ER 20:30 → H.ERHOLD 21:13 → H.ICU/CCU 23:29 → H.MEDSURG1 02-21 14:35
PROVIDERS: ADMIT Internal Medicine; ATTEND Internal Medicine
DX: T42.6X2A Poisoning by other antiepileptic and sedative-hypnotic drugs, intentional self-harm, initial encounter (principal); G92 Toxic encephalopathy; R45.851 Suicidal ideations; F32.1 Major depressive disorder, single episode, moderate; E87.6 Hypokalemia; F31.9 Bipolar disorder, unspecified; Y92.9 Unspecified place or not applicable; F40.10 Social phobia, unspecified; Z79.899 Other long term (current) drug therapy; Z91.5 Personal history of self-harm; R40.0 Somnolence; R41.82 Altered mental status, unspecified; R45.87 Impulsiveness; R47.81 Slurred speech

== ENCOUNTER 2017-02-23 22:44 | Inpatient (IN) | payer MEDICAID ==
[2017-02-23 22:54] VITALS: BMI 20.7
[2017-02-23] MEDS ORDERED: Magnesium Hydroxide Susp 30 ml UD PO PRN (23:06)
[2017-02-23] MEDS ORDERED: Alum-Mag Hydrox-Simethicone Susp (30 mL) PO PRN (23:06)
[2017-02-23] MEDS ORDERED: Naproxen 500 MG TAB PO PRN (23:21)
[2017-02-23] MEDS ORDERED: Bismuth Subsalicylate 262 mg/15 ml Sus (240 ml) PO PRN (23:22)
--- NOTE | 2017-02-23 23:50 | PCM.BM ---
<GuillermoJenn Lopez - Last Filed: 02/23/17 23:48> Treatment Plan Problems - Problems identified on initial assessmt Hopelessness/helplessness Date Initiated: 02/23/17 Time Initiated: 23:00 Assessment reference: NA Status: Active Treatment assets and liabiliti Patient Assests: cooperative, educated, physically healthy, cognitively intact Patient Liabilities: live alone, poor support system - Milieu Protocol Maintain good personal hygiene: daily Encourage regular showers, daily Remind patient to perform daily oral care, daily Assist patient to perform ADL's Maintain personal safety: every shift Educate patient to report safety concerns to staff, every shift Monitor environment for contraband/sharps Medication safety: Monitor for expected outcome, potential side effects: every shift, Assess barriers to learning: every shift, Assess readiness for medication education: every shift <Opal Gamez - Last Filed: 02/26/17 09:24> Treatment assets and liabiliti Patient Assests: adapts well, cooperative, educated, insightful, motivated, ADL independent, physically healthy, good support system, negotiates basic needs, cognitively intact Patient Liabilities: live alone Family Contact Family involvement: Family/SO is involved Family contact: Patient agrees to contact, Family has been contacted by patient , Telephone contact initiated by staff Family contact name: Rhonda(mother)([phone]) Family contacted how many times per week?: 2 Family contact comment: Director Electronics has contacted patients mother to discuss patients progress on 3NP, anticipated discharge and aftercare. Patients parents will be taking turns staying with patient in [place] for the next several weeks to help patient get readjusted and ensure saftey upon discharge, as per patients mother. Director Electronics emphasized importance of compliance with aftercare to ensure saftey/functioning in the communityand reduce risk of future hospitalizations. Patients mother expressed understanding and denied having concerns regarding patients discharge/return home. Patient to be picked up by family on 02/26 at 10am. - Outside Agency Agency 1 Care involvment: Other Agency contact name: [facility] Agency contact number: [phone] - Goals for Treatment Patient goals for treatment: Patient has been an active participant in discussions regarding treatment on 3NP and appropriate aftercare. Patient has been encouraged to attend 4-6 groups/weekly to develop appropriate coping skills , improve insight and promote self-esteem, saftey and compliance. Patient reports improvement in symptoms of anxiety and depression since admission. Patient expresses remorse regarding suicide attempt leading to admission and currently denies SI/HI. Patient expresses being motivated for tx upon discharge. Discharge/Continuing Care - Education Needs Education Needs: Family Medication, Family Diagnosis/Disease Process, Family Coping Skills, Family Community resources, Family Aftercare Safety Plan, Patient Medication, Patient Diagnosis/Disease Process, Patient Coping Skills, Patient Community resources, Patient Aftercare Safety Plan - Discharge Discharge Criteria: Tolerates medication w/o severe side effects, Free of Suicidal thoughts, Normal sleep pattern, Ability to care for self, Reduction of target symptoms Discharge to:: Home, With Family
--- NOTE | 2017-02-24 06:47 | CP.PCM.HP ---
History of Present Illness - History of Present Illness History of Present Illness: 27 yo ,f, PMHx/o Major depression who was brought in to ED by EMS after suicidal attempt with Ambien overdose (27 pills) 3 days ago.Patient was admitted in ICU, medsurg and transferred to psyq unit [facility]. Patient reports has been with suicidal ideation for about 1 year and took medications to finish with his problems, but does not want to mention what kind of problems. Patient AAO x 3, denies chest pain, SOB, tremor, nausea, anxiety, abd pain, visual or auditory hallucinations. She has been seeing a psychiatrist, Dr. Malone as a regular base.last visit 2 weeks ago PMhx: Major depression Allergies: Cefaclor, Penicillins Meds: lamotrigine ,Prozac, [place] 100mg BID ( as per patient ) PsurgHx: None PShx: +ETOH occs social, no rect drus, no cig PMD: Dr Carmencita Aguilar Present on Admission - Present on Admission Any Indicators Present on Admission: No History of DVT/PE: No History of Uncontrolled Diabetes: No Urinary Catheter: No Decubitus Ulcer Present: No Past Patient History - Infectious Disease Hx of Infectious Diseases: None - Past Medical History & Family History Past Medical History?: No - Past Social History Smoking Status: Never Smoked Chewing Tobacco Use: No - CARDIAC Hx Cardiac Disorders: No (Unobtainable) Hx Angina: No Hx Atrial Fibrillation: No - PULMONARY Hx Respiratory Disorders: Yes (Unobtainable) Other/Comment: UNobtainable - NEUROLOGICAL Hx Neurological Disorder: Yes (Unobtainable) Other/Comment: Unobtainable - HEENT Hx HEENT Problems: Yes (Unobtainable) Other/Comment: Unobtainable - RENAL Hx Chronic Kidney Disease: Yes (Unobtainable) Other/Comment: Unobtainable - ENDOCRINE/METABOLIC Hx Endocrine Disorders: Yes (Unobtainable) Other/Comment: Unobtainable - HEMATOLOGICAL/ONCOLOGICAL Hx Blood Disorders: Yes (Unobtainable) - INTEGUMENTARY Hx Dermatological Problems: Yes (Unobtainable) - MUSCULOSKELETAL/RHEUMATOLOGICAL Hx Musculoskeletal Disorders: Yes (Unobtainable) - GASTROINTESTINAL Hx Gastrointestinal Disorders: Yes (Unobtainable) - GENITOURINARY/GYNECOLOGICAL Hx Genitourinary Disorders: Yes (Unobtainable) - PSYCHIATRIC Hx Depression: Yes Hx Substance Use: No - SURGICAL HISTORY Hx Surgeries: Yes (Unobtainable) - ANESTHESIA Hx Anesthesia: Yes (Unobtainable) Meds Allergies/Adverse Reactions: Allergies Allergy/AdvReac Type Severity Reaction Status Date / Time cefaclor [From Ceclor] Allergy ITCHING Verified 02/23/17 23:19 Penicillins Allergy ITCHING Verified 02/23/17 23:19 Physical Exam - Constitutional Appears: Non-toxic - Head Exam Head Exam: ATRAUMATIC, NORMOCEPHALIC - Eye Exam Eye Exam: Normal appearance - ENT Exam ENT Exam: Mucous Membranes Moist, Normal Exam - Respiratory Exam Respiratory Exam: Clear to Auscultation Bilateral. absent: Rhonchi, Wheezes - Cardiovascular Exam Cardiovascular Exam: REGULAR RHYTHM, +S1, +S2 - GI/Abdominal Exam GI & Abdominal Exam: Normal Bowel Sounds, Soft. absent: Tenderness - Extremities Exam Extremities exam: Positive for: normal inspection. Negative for: calf tenderness, pedal edema - Neurological Exam Neurological exam: Alert, Normal Gait, Oriented x3 - Psychiatric Exam Psychiatric exam: Normal Affect, Normal Mood - Skin Skin Exam: Intact Results - Vital Signs Recent Vital Signs: Last Vital Signs Temp Pulse Resp 20 02/23/17 22:51 BP Pulse Ox Assessment & Plan - Assessment and Plan (Free Text) Plan: 27 yo ,f, PMHx/o Major depression admitted for overdose ambien ( suicidal attempt) and transferred to Psyq unit tonight Assesment/plan 1) Major depression -lamotrigine -Prozac -[place]at[place] 100mg BID ( as per patient ) -Psyq consult suggested -Senatobia levels low 2) Drug Overdose on Ambien with Suicide Attempt -resolved 3) DVT Prophylaxis -able to ambulate
[2017-02-24 08:25] LABS: T4 9.97 ug/dl (5.5-11.0)
[2017-02-24 08:39] LABS: THYROID STIMULATING HORMONE 2.92 mIU/ML (0.46-4.68)
[2017-02-24] MEDS: Enoxaparin 40 mg Syringe SC SCH (09:54)
--- NOTE | 2017-02-24 10:38 | PCM.PSYCH ---
Initial Psychiatric Evaluation - Initial Psychiatric Evaluation Type of Admission: Voluntary Legal Status: Capacity Chief Complaint (in patient's own words): i tried to kill myself Patient's Reaction to Hospitalization: cooperative History of Present Illness and Precipitating Events: 27 yo female, lives in [place]. pt attempted suicide by od on ambien. she states she had to tell her family, who has been supporting her, that she spent their money unwisely. she felt it "would be best for everyone if i ended it." she states immediately after taking the overdose she called to get help. she apparently has some chronic suicidal thoughts, but has never taken action until now. she has been seeing a therapist and takes prozac, lamictal and lithium from a psychiatrist- apparently she see both once a month. 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 she reports periods of depression, and reactive angry. denies any prolonged manic/ elevated mood. she gets some intrusive negative thoughts, but denies auditory hallucinations. Current Medications: Active Medications Generic Name Dose Route Start Last Admin Trade Name Freq PRN Reason Stop Dose Admin Acetaminophen 650 mg 02/23/17 23:06 02/24/17 10:20 Tylenol 325mg Tab PO 650 mg Q4 PRN Administration pain level 4-7 Al Hydrox/Mg Hydrox/Simethicone 30 ml 02/23/17 23:06 Maalox Plus 30 Ml PO Q4 PRN Dyspepsia Aripiprazole 5 mg 02/24/17 10:30 Abilify PO DAILY JONATHAN Bismuth Subsalicylate 524 mg 02/23/17 23:22 Pepto-Bismol PO Q4 PRN Diarrhea Diphenhydramine HCl 50 mg 02/23/17 23:06 Benadryl PO Q6 PRN Extrapyramidal Symptoms Diphenhydramine HCl 50 mg 02/23/17 23:22 Benadryl PO HS PRN Sleep Enoxaparin Sodium 40 mg 02/24/17 09:00 02/24/17 09:54 Lovenox SC Not Given DAILY [facility] Protocol Fluoxetine HCl 10 mg 02/24/17 10:30 Prozac PO DAILY JONATHAN Haloperidol 5 mg 02/23/17 23:06 Haldol PO Q4 PRN Agitation Haloperidol Lactate 5 mg 02/23/17 23:06 Haldol IM Q4 PRN Agitation, Unable to Take PO Lamotrigine 200 mg 02/24/17 09:00 02/24/17 09:41 Lamictal PO 200 mg DAILY JONATHAN Administration Lorazepam 2 mg 02/23/17 23:06 Ativan IM Q4 PRN Anxiety/Agitation,Unable PO Lorazepam 2 mg 02/23/17 23:06 Ativan PO Q4 PRN Anxiety/Agitation Magnesium Hydroxide 30 ml 02/23/17 23:06 Milk Of Magnesia PO HS PRN Constipation Naproxen 500 mg 02/23/17 23:21 Naproxen PO Q12 PRN pain level 7-10 Past Psychiatric History - Past Psychiatric History Previous Treatment History: None Prior Professional Help: history of therapy, outpt psychiatry History of ETOH/Drug Use: denies, etoh was 37 when admitted to medical floor History of Family Illness: states there is a history of depression on her maternal side Pertinent Medical Hx (Current Medical&Sleep Prob, Allergies): Allergies Allergy/AdvReac Type Severity Reaction Status Date / Time cefaclor [From Ceclor] Allergy ITCHING Verified 02/23/17 23:19 Penicillins Allergy ITCHING Verified 02/23/17 23:19 Enoxaparin [Lovenox] 40 mg SC DAILY 02/23/17 Lamotrigine [Lamictal] 200 mg PO DAILY 02/23/17 Naproxen [Naprosyn] 500 mg PO Q12 PRN 02/23/17 Ondansetron [Zofran Inj] 4 mg IVP Q4H PRN 02/23/17 denies any chronic medical issues Review of Systems - Psychiatric Psychiatric: As Per HPI Mental Status Examination - Personal Presentation Personal Presentation: Looks stated age Additional comments: well groomed - Affect Affect: Constricted - Motor Activity Motor Activity: Calm - Reliability in Providing Information Reliability in Providing Information: Good - Speech Speech: Organized - Mood Mood: Depressed - Formal Thought Process Formal Thought Process: No Impairment - Obsessions/Compulsions Obsessions: No Compulsions: No - Cognitive Functions Orientation: Person, Place, Situation, Time Sensorium: Alert Attention/Concentration: Attentive Abstract Thinking: [place] Estimate of Intelligence: Average Judgement: Intact, as evidence by: Insight regarding need for hospitalization Memory: Recent intact, as evidence by: Ability to recall events of the day, Remote intact, as evidenced by: Abilit to recall sig. life events - Risk Risk: Suicidal, Diminished functioning - Strength & Assets Inventory Strength & Assets Inventory: Intelligence, Family support, Employment history - Limitations Limitations: Living alone (now family will be staying with her) DSM 5 DX - DSM 5 DSM 5 Diagnosis: major depression, recurrent severe r/o bipolar 2 - Recommended/Plan of Treatment Treatment Recommendations and Plan of Treatment: admit to [facility] for safety and observation gather collateral information provide supportive therapy adjust medications- will dc lihtium. continue lamictal and prozac and add low dose abilify. discussed r/b/se with pt. refer to oupt therapy/psychiatry at [facility] hospitalist consult Projected ELOS: 3 days Prognosis: fair - Smoking Cessation Smoking Cessation Initiated: No
[2017-02-25] MEDS: Enoxaparin 40 mg Syringe SC SCH (09:00)
[2017-02-25 09:19] VITALS: RESP 18
--- NOTE | 2017-02-25 13:43 | PCM.PYCHPN ---
Psychiatric Progress Note - Psychiatric Progress Note Patient seen today, length of contact: discussed with team Patient Chief Complaint: i feel good Problems Identified/Issues Discussed: pt states she has no side effects with the abilify. no problems sleeping. she attends groups. states her parents are supportive and eagerly awaiting her coming home. she still wants to change providers to see someone in her insurance network. she denies suicidal thoughts currently. Medication Change: No Medical Record Reviewed: Yes Mental Status Examination - Cognitive Function Orientation: Person, Place, Situation, Time Memory: Intact Attention: WNL Concentration: WNL Association: WNL Fund of Knowledge: [facility] Decription of patient's judgement and insights: fair - Mood Mood: Neutral - Affect Affect: Constricted - Speech Speech: Appropriate - Formal Thought Process Formal Thought Process: No Impairment Psychotic Thoughts and Behaviors: denies any a/v hallucinations - Suicidal Ideation Suicidal Ideation: No - Homicidal Ideation Homicidal Ideation: No Plan: denies any suicidal or homicidal thoughts Goal/Treatment Plan - Goal/Treatment Plan Need for Continued Stay: Remain at risks for inpatient hospitalization, Severe functional impairment Progress Toward Problem(s) and Goals/Treatment Plan: major depression recurrent continue current medications discharge tomorrow arrange outpt treatment Estimated Date of D/C: 02/26/17
--- NOTE | 2017-02-26 08:30 | PCM.PYCHDC ---
Mental Status Examination - Mental Status Examination Orientation: Person, Place, Situation, Time Memory: Intact Mood: Neutral Affect: Broad Speech: Appropriate Attention: WNL Concentration: WNL Association: WNL Fund of Knowledge: WNL Formal Thought Process: No Impairment Description of patient's judgement and insight: fair Psychotic Thoughts and Behaviors: denies any a/v hallucinations Suicidal Ideation: No Current Homicidal Ideation?: No Plan: pt denies any suicidal or homicidal thoughts Discharge Summary - Discharge Note Reason for Hospitalization: pt took an overdoes of medication in a suicide attempt Psychiatric History (includes Medical, Family, Personal Hx): history of treatment for depression as an outpt. Consultations:: List each consultation separately and include: 1. Reason for request. 2. Findings. 3. Follow-up Consultations: seen by hospitalist Summary of Hospital Course include:: 1. Description of specific treatment plan utilized for patients during their course of treatmen. 2. Summarize the time- course for resolution of acute symptoms and/or regressed behaviors. 3. Describe issues identified and worked on during hospitalization. 4. Describe medication utilized. 5. Describe medical problems identified and treated. 6. Reassessment of suicide risk Summary of Hospital Course: 27 yo female, lives in [place]. pt attempted suicide by od on ambien. she states she had to tell her family, who has been supporting her, that she spent their money unwisely. she felt it "would be best for everyone if i ended it." she states immediately after taking the overdose she called to get help. she apparently has some chronic suicidal thoughts, but has never taken action until now. she has been seeing a therapist and takes prozac, lamictal and lithium from a psychiatrist- apparently she see both once a month. 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 she reports periods of depression, and reactive angry. denies any prolonged manic/ elevated mood. she gets some intrusive negative thoughts, but denies auditory hallucinations. hospital course pt was admitted to [facility] and oriented to the unit. pt was placed on routine safety protocols. pt was seen by the hospitalist. pt was started on her lamictal and prozac for depression. her lithium was discontinued and she was started on a low dose of abilify to help treat her mood symptoms after a discussion of the risks/benefits and side effects. she was participating in groups. her mood improved and she was no longer suicidal. her family was contacted by the treatment team and they were expressing their support for the discharge and were going to stay with the patient after he discharge. pt was referred to the [facility] at [facility] and was agreeable to follow up with her new outpt providers. at the time of discharged she was goal directed and future oriented and denying any suicidal or homicidal thoughts. - Final Diagnosis (DSM 5) Condition upon Discharge: GOOD DSM 5: major depression, recurrent moderate Disposition: HOME/ ROUTINE Follow-up Treatment Plan: follow up with outpt treatment as directed take medications as prescribed do not use alcohol, tobacco or other illicit substances call 911 if any suicidal or homicidal thoughts Prescriptions/Medication Reconciliation: ARIPiprazole [Abilify] 5 mg PO DAILY #30 tab FLUoxetine [Prozac] 10 mg PO DAILY #30 cap Lamotrigine [Lamictal] 200 mg PO DAILY #30 tab - Smoking Cessation Smoking Cessation Medication prescribed: No - Antipsychotic Medications Pt discharged on 2 or more routine antipsychotic medications: No
[2017-02-26 09:16] VITALS: BP 125/75; PULSE 63; TEMP 96.4
== END 2017-02-26 12:24 | disposition home or self-care (01) | DRG 430 ==
LOC: H.PSYCH 22:44
PROVIDERS: ADMIT Psychiatry & Neurology Psychiatry; ATTEND Psychiatry & Neurology Psychiatry
PROC: GZ51ZZZ Individual Psychotherapy, Behavioral (ICD-10-PCS; 2017-02-23)
PROC: GZHZZZZ Group Psychotherapy (ICD-10-PCS; principal; 2017-02-24)
DX: F33.1 Major depressive disorder, recurrent, moderate (principal); Z91.5 Personal history of self-harm; Z81.8 Family history of other mental and behavioral disorders